=== PATIENT | male | born 2000 | race Caucasian/White ===

== ENCOUNTER 2023-12-23 16:32 | Emergency (ER) | payer BC ==
[~2023-12-23] VITALS: Ht 177.8 cm; Wt 90.7 kg
[2023-12-23 16:40] VITALS: BP 132/82; TEMP 98.2
[2023-12-23 17:18] VITALS: O2SAT 98
== END 2023-12-23 17:18 | disposition home or self-care (01) ==
LOC: ER 16:50
DX: S60.321A Blister (nonthermal) of right thumb, initial encounter (principal); Z60.2 Problems related to living alone; X58.XXXA Exposure to other specified factors, initial encounter; Y93.89 Activity, other specified; Y92.89 Other specified places as the place of occurrence of the external cause; Y99.8 Other external cause status